=== PATIENT | female | born 1975 | race Caucasian/White ===

== ENCOUNTER → 2016-05-22 | Outpatient (CLI) | payer BC ==
--- NOTE | 2016-05-25 10:20 | MM ---
Reason for exam: screening (asymptomatic). Last mammogram was performed 1 year ago. Physical Findings: A clinical breast exam by your physician is recommended on an annual basis and results should be correlated with mammographic findings. MG Screening Mammo w CAD Bilateral CC and MLO view(s) were taken. Prior study comparison: May 29, 2015, right breast MG 3d work up w/cad RT. May 22, 2015, bilateral MG screening mammo w CAD. The breast tissue is heterogeneously dense. This may lower the sensitivity of mammography. Finding #1: There is a 5 mm mass in the outer quadrant of the right breast. Finding #2: There are typically benign calcifications in the left breast. ASSESSMENT: Incomplete: need additional imaging evaluation, BI-RAD 0 RECOMMENDATION: Special view mammogram of the right breast. If lesion persists on supplemental views, image directed ultrasound is recommended. [facility] will attempt to contact patient to return for supplemental views and ultrasound if indicated.
== END | disposition home or self-care (01) ==
LOC: RADMAMWWP 08:49
PROVIDERS: ATTEND Obstetrics & Gynecology
DX: Z12.31 Encounter for screening mammogram for malignant neoplasm of breast (principal); R92.8 Other abnormal and inconclusive findings on diagnostic imaging of breast

== ENCOUNTER → 2016-05-29 | Outpatient (CLI) | payer BC ==
--- NOTE | 2016-05-29 10:30 | MM ---
Reason for exam: additional evaluation requested from abnormal screening. Last mammogram was performed less than 1 month ago. Physical Findings: Nurse did not find any significant physical abnormalities on exam. MG Work Up Mamm w CAD RT ML and spot compression CC view(s) were taken of the right breast. Prior study comparison: May 22, 2016, bilateral MG screening mammo w CAD. May 29, 2015, right breast MG 3d work up w/cad RT. The breast tissue is heterogeneously dense. This may lower the sensitivity of mammography. Asymmetric breast tissue in the right breast persists with compression. These results were verbally communicated with the patient and result sheet given to the patient on 05/29/16. ASSESSMENT: Incomplete: need additional imaging evaluation, BI-RAD 0 RECOMMENDATION: Ultrasound of the right breast. (upper outer quadrant)
--- NOTE | 2016-05-29 10:31 | USB ---
Reason for exam: additional evaluation requested from abnormal screening. US Breast Workup Limited RT Right breast ultrasound demonstrates a 0.6 x 0.6 x 0.3cm oval, hypoechoic lesion at 9 o'clock. These results were verbally communicated with the patient and result sheet given to the patient on 05/29/16. ASSESSMENT: Benign, BI-RAD 2 RECOMMENDATION: Follow-up diagnostic mammogram of the right breast in 6 months.
== END | disposition home or self-care (01) ==
LOC: RADMAMWWP 08:55
PROVIDERS: ATTEND Obstetrics & Gynecology
DX: R92.8 Other abnormal and inconclusive findings on diagnostic imaging of breast (principal)
CPT/HCPCS: 76642; G0206

== ENCOUNTER → 2016-12-01 | Outpatient (CLI) | payer BC ==
--- NOTE | 2016-12-01 10:45 | MM ---
Reason for exam: follow-up at short interval from prior study. Last mammogram was performed 6 months ago. Physical Findings: Nurse did not find any significant physical abnormalities on exam. MG Diagnostic Mammo RT w CAD CC and MLO view(s) were taken of the right breast. Prior study comparison: May 29, 2016, right breast MG work up mamm w CAD RT. May 22, 2016, bilateral MG screening mammo w CAD. The breast tissue is heterogeneously dense. This may lower the sensitivity of mammography. No significant new findings when compared with previous films. These results were verbally communicated with the patient and result sheet given to the patient on 12/01/16. ASSESSMENT: Probably benign, BI-RAD 3 RECOMMENDATION: Follow-up diagnostic mammogram of both breasts in 6 months. Back on schedule.
== END | disposition home or self-care (01) ==
LOC: RADMAMWWP 10:01
PROVIDERS: ATTEND Obstetrics & Gynecology
DX: R92.8 Other abnormal and inconclusive findings on diagnostic imaging of breast (principal)

== ENCOUNTER → 2017-06-15 | Outpatient (CLI) | payer BC ==
--- NOTE | 2017-06-15 14:00 | MM ---
Reason for exam: additional evaluation requested from prior study. Last mammogram was performed 6 months ago. Physical Findings: Nurse did not find any significant physical abnormalities on exam. MG Diagnostic Mammo w CAD TONI Bilateral CC and MLO view(s) were taken. Prior study comparison: December 01, 2016, right breast MG diagnostic mammo RT w CAD. May 29, 2016, right breast MG work up mamm w CAD RT. The breast tissue is heterogeneously dense. This may lower the sensitivity of mammography. No significant new findings when compared with previous films. These results were verbally communicated with the patient and result sheet given to the patient on 06/15/17. ASSESSMENT: Negative, BI-RAD 1 RECOMMENDATION: Routine screening mammogram of both breasts in 1 year.
== END | disposition home or self-care (01) ==
LOC: RADMAMWWP 13:12
PROVIDERS: ATTEND Obstetrics & Gynecology
DX: R92.8 Other abnormal and inconclusive findings on diagnostic imaging of breast (principal)
CPT/HCPCS: 77066

== ENCOUNTER → 2018-11-03 | Outpatient (CLI) | payer BC ==
--- NOTE | 2018-11-08 09:40 | MM ---
Reason for exam: screening (asymptomatic). Last mammogram was performed 1 year and 5 months ago. History: Patient is postmenopausal. Physical Findings: A clinical breast exam by your physician is recommended on an annual basis and results should be correlated with mammographic findings. MG 3D Screening Mammo W/Cad Bilateral CC and MLO view(s) were taken. Prior study comparison: June 15, 2017, bilateral MG diagnostic mammo w CAD [facility]. December 01, 2016, right breast MG diagnostic mammo RT w CAD. The breast tissue is heterogeneously dense. This may lower the sensitivity of mammography. No significant changes when compared with prior studies. ASSESSMENT: Benign, BI-RAD 2 RECOMMENDATION: Routine screening mammogram of both breasts in 1 year.
== END | disposition home or self-care (01) ==
LOC: RADMAMWWP 09:43
PROVIDERS: ATTEND Family Medicine
DX: Z12.31 Encounter for screening mammogram for malignant neoplasm of breast (principal)
CPT/HCPCS: 77063; 77067

== ENCOUNTER → 2018-11-08 | Outpatient (CLI) | payer BC ==
--- NOTE | 2018-11-08 11:42 | EST ---
EXERCISE STRESS AGE: 43 SEX: F HT: 62" WT: 160 PROTOCOL: Khoi Stress Test STAGE: 3 DURATION OF EXERCISE: 9:00 HEART RATE REST: 90 BLOOD PRESSURE REST: 146/94 MAXIMUM HEART RATE ACHIEVED: 153 MAXIMUM BLOOD PRESSURE: 167/65 85% MPHR: 149 100% MPHR: 176 METS: 10.5 INDICATIONS: Chest pain. CLINICAL INFORMATION: STRESS DATA: Heart rate 90, pressure is 146/94 mmHg. Baseline EKG showed sinus mechanism. The patient exercised on the treadmill according to Khoi protocol for a total of 9 minutes and achieved 10.5 METS. Max heart rate was 153 which is about 87% of maximum predicted heart rate. Maximum blood pressure was 167/65 mmHg. Clinically, the patient did not have any symptoms of chest pain or discomfort and the EKG did not show any significant ST or T-wave abnormalities concerning for ischemia. CONCLUSION: 1. Excellent exercise tolerance. 2. Normal EKG in response to exercise. 3. Essentially normal exercise treadmill stress test for this patient. MMODL / IJN: [id number] /
--- NOTE | 2018-11-09 09:49 | ECHOF ---
Referral Reason:R00.2 Palpitations, R07.89 Other chest pain MEASUREMENTS -------- HEIGHT: 157.5 cm WEIGHT: 72.6 kg BP: RVIDd: 2.8 cm (< 3.3) IVSd: 1.5 cm (0.6 - 1.1) LVIDd: 4.0 cm (3.9 - 5.3) LVPWd: 1.4 cm (0.6 - 1.1) IVSs: 1.8 cm LVIDs: 2.2 cm LVPWs: 1.9 cm LAESV Index (A-L): 19.18 ml/m Ao Diam: 3.1 cm (2.0 - 3.7) AV Cusp: 2.1 cm (1.5 - 2.6) LA Diam: 3.5 cm (2.7 - 3.8) MV E Demario: 0.63 m/s MV DecT: 144 ms MV A Demario: 0.54 m/s MV E/A Ratio: 1.17 AR PHT: 468 ms FINDINGS -------- Sinus rhythm. This was a technically adequate study. The left ventricular size is normal. There is moderate concentric left ventricular hypertrophy. O verall left ventricular systolic function is normal with, an EF between 60 - 65 %. The diastolic fi lling pattern is normal for the age of the patient 12.69. The right ventricle is normal in size. Normal LA size by volume 22+/-6 ml/m2. The right atrial size is normal. Interatrial and interventricular septum intact. The aortic valve is trileaflet and appears structurally normal. There is mild aortic regurgitation. There is no evidence of aortic stenosis. The mitral valve is normal. No mitral regurgitation. Mild tricuspid regurgitation present. There is no evidence of pulmonary hypertension. The right v entricular systolic pressure, as measured by Doppler, is {RVSP}. There is no pulmonic regurgitation present. The aortic root size is normal. Normal inferior vena cava with normal inspiratory collapse consistent with estimated right atrial pre ssure of 5 mmHg. There is no pericardial effusion. CONCLUSIONS -------- 1. Sinus rhythm. 2. This was a technically adequate study. 3. The left ventricular size is normal. 4. There is moderate concentric left ventricular hypertrophy. 5. Overall left ventricular systolic function is normal with, an EF between 60 - 65 %. 6. The diastolic filling pattern is normal for the age of the patient 12.69 7. The right ventricle is normal in size. 8. Normal LA size by volume 22+/-6 ml/m2. 9. The right atrial size is normal. 10. Interatrial and interventricular septum intact. 11. The aortic valve is trileaflet and appears structurally normal. 12. There is mild aortic regurgitation. 13. There is no evidence of aortic stenosis. 14. The mitral valve is normal. 15. No mitral regurgitation. 16. Mild tricuspid regurgitation present. 17. There is no evidence of pulmonary hypertension. 18. The right ventricular systolic pressure, as measured by Doppler, is {RVSP}. 19. There is no pulmonic regurgitation present. 20. The aortic root size is normal. 21. Normal inferior vena cava with normal inspiratory collapse consistent with estimated right atrial pressure of 5 mmHg. 22. There is no pericardial effusion. PHYSICIAN ALLERGIST IMMUNOLOGIST: Ruthie Quintana RDCS
== END ==
LOC: RADNMMAIN 10:24
PROVIDERS: ATTEND Family Medicine
DX: I08.2 Rheumatic disorders of both aortic and tricuspid valves (principal); R00.2 Palpitations; R07.89 Other chest pain
CPT/HCPCS: 93017; 93306

== ENCOUNTER → 2020-03-28 | Outpatient (CLI) | payer BC ==
--- NOTE | 2020-03-28 11:07 | MM ---
Reason for exam: clinical finding. Last mammogram was performed 1 year and 5 months ago. Physical Findings: Nurse did not find any significant physical abnormalities on exam. MG Diagnostic Mammo w CAD TONI Bilateral CC and MLO view(s) were taken. Prior study comparison: November 03, 2018, bilateral MG 3d screening mammo w/cad. June 15, 2017, bilateral MG diagnostic mammo w CAD [facility]. The breast tissue is heterogeneously dense. This may lower the sensitivity of mammography. Focal asymmetry on distortion left upper outer quadrant, resolves on compression. This finding is changed when compared with previous exams. These results were verbally communicated with the patient and result sheet given to the patient on 03/28/20. ASSESSMENT: Probably benign, BI-RAD 3 RECOMMENDATION: Follow-up diagnostic mammogram of the left breast in 6 months.
== END | disposition home or self-care (01) ==
LOC: RADMAMWWP 10:07
PROVIDERS: ATTEND Obstetrics & Gynecology
DX: N64.4 Mastodynia (principal)
CPT/HCPCS: 77066

== ENCOUNTER → 2021-07-10 | Outpatient (CLI) | payer BC ==
--- NOTE | 2021-07-14 10:04 | MM ---
Reason for exam: screening (asymptomatic). Last mammogram was performed 1 year and 3 months ago. History: Reductions of both breasts, October 2020. Physical Findings: A clinical breast exam by your physician is recommended on an annual basis and results should be correlated with mammographic findings. MG Screening Mammo w CAD Bilateral CC, MLO, and XCCL view(s) were taken. Prior study comparison: March 28, 2020, bilateral MG diagnostic mammo w CAD [facility]. November 03, 2018, bilateral MG 3d screening mammo w/cad. The breast tissue is heterogeneously dense. This may lower the sensitivity of mammography. Finding: There is a new 7 mm equal density (isodense), obscured round mass located 2 cm from the nipple in the upper outer quadrant, anterior position of the right breast. New finding since March 28, 2020 and November 03, 2018. ASSESSMENT: Incomplete: need additional imaging evaluation, BI-RAD 0 RECOMMENDATION: Special view mammogram and ultrasound of the right breast. [facility] will attempt to contact patient to return for supplemental views and ultrasound.
== END | disposition home or self-care (01) ==
LOC: RADMAMWWP 12:37
PROVIDERS: ATTEND Family Medicine
DX: Z12.31 Encounter for screening mammogram for malignant neoplasm of breast (principal)
CPT/HCPCS: 77067

== ENCOUNTER → 2021-08-12 | Outpatient (CLI) | payer BC ==
--- NOTE | 2021-08-12 09:54 | MM ---
Reason for Exam: Additional evaluation requested from abnormal screening. Last screening mammogram was performed 1 month(s) ago. Patient History: Menarche at age 14. First Full-Term at age 24. 10/2020, Bilateral Reduction. Risk Values: Kandi 5 year model risk: 0.9%. NCI Lifetime model risk: 9.5%. Prior Study Comparison: 11/03/2018 Bilateral Screening Mammogram, [facility]. 03/28/2020 Bilateral Diagnostic Mammogram, [facility]. 07/10/2021 Bilateral Screening Mammogram, [facility]. Tissue Density: Right: The breast tissue is heterogeneously dense. This may lower the sensitivity of mammography. Findings: Analyzed By CAD. Mammogram There is a 1.1 cm low density circumscribed nodule along the upper outer quadrant periareolar region of the right breast for which ultrasound is recommended. Technique: Method: Targeted. Findings: The upper section of the breast of the right breast was scanned. Finding 1: Mass. Laterality: Right. Size 8 x 5 x 8 mm. 11 O'clock Depth: Anterior. 2 cm cm from nipple. Shape: Oval. Margin: Circumscribed (Well-Defined or Sharply-Defined). Targeted scanning 11:00 position 2 cm from the nipple shows a mammographic correlate characterized by intermediate by 8 x 5 mm circumscribed oval isoechoic nodule. Some posterior through transmission is present. No internal vascularity. Recommend tissue sampling to exclude a papilloma. No other solid or cystic lesion. Overall Assessment: Suspicious, BI-RAD 4 Assessment: MG work up mamm w CAD RT - Right: Incomplete: need additional imaging evaluation, BI-RAD 0. US breast workup limited RT - Right: Suspicious, BI-RAD 4. Management: Ultrasound Core Biopsy of the right breast. Ultrasound-guided core needle biopsy 8mm 11:00 periareolar nodule to exclude a papilloma. Likely mammographic correlate. Electronically signed and approved by: Mariajose Barragan M.D. Radiologist
== END | disposition home or self-care (01) ==
LOC: RADMAMWWP 08:50
PROVIDERS: ATTEND Family Medicine
DX: R92.8 Other abnormal and inconclusive findings on diagnostic imaging of breast (principal)
CPT/HCPCS: 77065

== ENCOUNTER → 2021-08-21 | Day surgery (SDC) | payer BC ==
--- NOTE | 2021-08-28 11:27 | MM ---
Reason for Exam: Post Procedure Mammogram. Last screening mammogram was performed 1 month(s) ago. Patient History: Menarche at age 14. First Full-Term at age 24. Patient has history of breast feeding. 10/2020, Bilateral Reduction. Last menstrual period: 08/17/2018 Risk Values: Kandi 5 year model risk: 0.9%. NCI Lifetime model risk: 9.5%. Prior Study Comparison: 03/28/2020 Bilateral Diagnostic Mammogram, [facility]. 07/10/2021 Bilateral Screening Mammogram, [facility]. 08/12/2021 Right MG work up mamm w CAD RT, [facility]. Tissue Density: Right: The breast tissue is heterogeneously dense. This may lower the sensitivity of mammography. Pathology Description: Location: 11 o'clock, anterior. Marker Left Behind. Cores: 5 The procedure of ultrasound guided core biopsy was explained to the patient. Benefits, alternatives, and risks were discussed. An informed consent was then obtained. The patient was placed in supine positioning for imaging and for the procedure. The overlying skin was prepped and draped in usual sterile fashion. Lidocaine was used as anesthetic into the skin followed by lidocaine/epinephrine into the subcutaneous tissue up to area of concern in the upper outer periareolar right breast. Under ultrasound guidance, a 13-gauge vacuum-assisted mammotome biopsy gun was used to obtain 5 core samples. Following this, a Hydromark clip was left in lesion. The patient tolerated the procedure well without any immediate complication. The patient was kept in the radiology department for short stay after the procedure and then discharged home in stable condition. Postbiopsy mammogram shows clip in the periareolar upper outer quadrant at the site of previous nodularity. Impression: Successful, uncomplicated ultrasound guided core biopsy of upper-outer quadrant right periareolar nodularity. Benign etiology favored. Full pathology results to follow. Pathology Results: Result: Benign, Fat necrosis. RIGHT BREAST, 11:00 POSITION, CORE BIOPSY: Benign breast tissue with focal chronic inflammation, fibrosis and fat necrosis (see note). Overall Assessment: Benign Assessment: MG diagnostic mammo RT wo CAD - Right: Benign, BI-RAD 2. Management: Diagnostic Mammogram of the right breast in 6 months. Electronically signed and approved by: Mariajose Barragan M.D. Radiologist
== END ==
LOC: RADUSWWP 12:35
PROVIDERS: ATTEND Surgery
DX: N60.31 Fibrosclerosis of right breast (principal); N64.1 Fat necrosis of breast
CPT/HCPCS: 88305; 77065; 19083; A4648

== ENCOUNTER → 2023-01-14 | Outpatient (CLI) | payer BC ==
--- NOTE | 2023-01-18 06:33 | MM ---
Reason for Exam: Screening (asymptomatic). Last mammogram was performed 1 year(s) and 6 month(s) ago. Patient History: Menarche at age 14. First Full-Term at age 24. Patient has history of breast feeding. 08/21/2021, Benign US biopsy breast VAD RT on the right side. 10/2020, Bilateral Reduction. Risk Values: Kandi 5 year model risk: 1.2%. NCI Lifetime model risk: 10.8%. Prior Study Comparison: 07/10/2021 Bilateral Screening Mammogram, [facility]. 08/12/2021 Right MG work up mamm w CAD RT, [facility]. 08/21/2021 Right MG diagnostic mammo RT wo CAD, [facility]. Tissue Density: The breast tissue is heterogeneously dense. This may lower the sensitivity of mammography. Findings: Analyzed By CAD. There are new bilateral heterogeneous grouped calcifications, 2 groups on either side for which further magnification views are recommended. There is no suspicious group of microcalcifications or new suspicious mass in either breast. Overall Assessment: Incomplete: need additional imaging evaluation, BI-RAD 0 Management: Special View Mammogram of both breasts. To include mag CC, magnified lateral, and 3-D lateral views of the 2 groups of microcalcifications on either side.. Electronically signed and approved by: Mariajose Barragan M.D. Radiologist
== END | disposition home or self-care (01) ==
LOC: RADMAMWWP 11:05
PROVIDERS: ATTEND Family Medicine
DX: Z12.31 Encounter for screening mammogram for malignant neoplasm of breast (principal)
CPT/HCPCS: 77067

== ENCOUNTER → 2023-02-02 | Outpatient (CLI) | payer BC ==
--- NOTE | 2023-02-02 11:09 | MM ---
Reason for Exam: Additional evaluation requested from abnormal screening. Last screening mammogram was performed less than 1 month ago. Patient History: Menarche at age 14. First Full-Term at age 24. Patient has history of breast feeding. 08/21/2021, Benign US biopsy breast VAD RT on the right side. 10/2020, Bilateral Reduction. Risk Values: Kandi 5 year model risk: 1.2%. NCI Lifetime model risk: 10.8%. Prior Study Comparison: 08/21/2021 Right MG diagnostic mammo RT wo CAD, [facility]. 01/14/2023 Bilateral MG screening mammo w CAD, [facility]. Tissue Density: The breast tissue is heterogeneously dense. This may lower the sensitivity of mammography. Findings: Analyzed By CAD. Pattern appears symmetrical. There are multiple amorphous calcifications present bilaterally. Calcifications within the left breast appear benign. The anterior calcifications adjacent to the core marker appear benign. There is additional filling heterogenous calcifications inferior anterior right breast 8.5 cm nipple. This is somewhat more peripheral and posterior compared to the previous biopsy site. These are considered suspicious and stereotactic core biopsy of these right breast calcifications is recommended. Overall Assessment: Suspicious, BI-RAD 4 Management: Stereotactic Core Biopsy of the right breast. A negative mammogram report should not preclude additional follow up of suspicious palpable abnormalities. Patient should continue monthly self breast exam. A clinical breast exam by your physician is recommended on an annual basis and results should be correlated with mammographic findings. Electronically signed and approved by: Sushant Beckwith D.O. Radiologis
== END | disposition home or self-care (01) ==
LOC: RADMAMWWP 10:11
PROVIDERS: ATTEND Family Medicine
DX: R92.333 Mammographic heterogeneous density, bilateral breasts (principal)
CPT/HCPCS: 77062; 77066

== ENCOUNTER → 2023-02-15 | Day surgery (SDC) | payer BC ==
--- NOTE | 2023-02-22 09:37 | MM ---
Risk Values: Kandi 5 year model risk: 1.2%. NCI Lifetime model risk: 10.8%. Prior Study Comparison: 08/21/2021 Right MG diagnostic mammo RT wo CAD, [facility]. 01/14/2023 Bilateral MG screening mammo w CAD, [facility]. 02/02/2023 Bilateral MG 3D work up w/cad TONI, [facility]. Pathology Description: Marker Left Behind. Specimen Radiograph. Approach: Lateral to Medial Needle Type: Eviva Cores: 5 Skin Nicks: 2 The procedure of stereotactic guided core biopsy was explained to the patient. Benefits, alternatives, and risks were discussed. An informed consent was then obtained. The 3:00 anterior right breast microcalcifications are identified and targeted for biopsy. The [facility] pathway for biopsy was chosen. Shortness pathway was a lateral approach. I performed the localization, followed by the remainder of the procedure. A vacuum assisted biopsy gun was used to obtain 5 core samples. The patient tolerated the procedure well without any immediate complication. The patient was kept in the radiology department for short stay after the procedure and then discharged home in stable condition. Targeted calcifications are identified in specimen mammogram. Post biopsy mammogram shows the clip to appear in satisfactory position relative to the targeted area of concern on the preprocedure images. IMPRESSION: SUCCESSFUL, UNCOMPLICATED STEREOTACTIC/TOMOGRAPHIC GUIDED CORE BIOPSY 9:00 ANTERIOR RIGHT BREAST GROUPED CALCIFICATIONS. Pathology Results: Result: Benign, Fat necrosis. RIGHT BREAST, STEREOTACTIC CORE BIOPSY: Nodular fat necrosis with microcalcification. Fibrocystic change with focal apocrine metaplasia, fibrosis, and fibroadenomatoid stromal hyperplasia. Negative for in situ or invasive carcinoma. Overall Assessment: Benign Management: Diagnostic Mammogram of the right breast in 6 months. Electronically signed and approved by: Mariajose Barragan M.D. Radiologist
== END ==
LOC: RADMAMWWP 09:50
PROVIDERS: ATTEND Surgery
DX: N60.81 Other benign mammary dysplasias of right breast (principal); N64.1 Fat necrosis of breast
CPT/HCPCS: 88305; 19081; A4648

== ENCOUNTER 2023-05-12 08:56 | Day surgery (SDC) | payer BC ==
[2023-05-10 13:42] VITALS: BMI 25.9
[~2023-05-12 08:56] MED LIST: LIDOCAINE 1% (10MG/ML) FOR IV START INTRADERMA PRN; ONDANSETRON 4 MG/2 ML VIAL IVP PRN
[2023-05-12] MEDS: LACTATED RINGERS 1,000 ML IV SCH (09:42)
[2023-05-12 10:27] VITALS: TEMP 97.3
[2023-05-12] MEDS ORDERED: fentaNYL (PF) 50 MCG/ML 2 ML AMP ONE (10:37)
[2023-05-12] MEDS ORDERED: PROPOFOL 10 MG/ML 20 ML VIAL IV ONE (10:37)
--- NOTE | 2023-05-12 10:53 | P.PCN ---
Date of Procedure: 05/12/23 Procedure(s) Performed: BRIEF HISTORY: Patient is a 46-year-old pleasant white female scheduled for an elective colonoscopy as a part of screening for colon cancer. PROCEDURE PERFORMED: Colonoscopy. PREOPERATIVE DIAGNOSIS: Screening for colon cancer. IV sedation per Anesthesia. PROCEDURE: After informed consent was obtained, the patient, was brought into the endoscopy unit. IV sedation was administered by Anesthesia under continuous monitoring. Digital rectal examination was normal. Initially the Olympus CF-160 flexible video colonoscope was then inserted in the rectum, gradually advanced into the cecum without any difficulty. Careful examination was performed as the scope was gradually being withdrawn. Ileocecal valve and the appendiceal orifice were visualized and appeared normal. Prep was excellent. Mucosa of the cecum, ascending colon, transverse colon, descending colon, sigmoid colon, and rectum appeared normal. Scattered sigmoid diverticulosis. Retroflexion was performed in the rectum and no lesions were seen. The patient tolerated the procedure well. IMPRESSION: Normal-appearing colon from rectum to cecum with no evidence of colorectal neoplasia. Scattered sigmoid diverticulosis. RECOMMENDATIONS: Findings of this examination were discussed with the patient as well as a family.. She was advised to have a repeat screening colonoscopy in 10 years.
[2023-05-12 11:36] VITALS: BP 119/75; PULSE 76; RESP 18
== END 2023-05-12 11:50 | disposition home or self-care (01) ==
LOC: ORWHC2ENDO 08:56
PROVIDERS: ATTEND Internal Medicine Gastroenterology
DX: Z12.11 Encounter for screening for malignant neoplasm of colon (principal); K57.30 Diverticulosis of large intestine without perforation or abscess without bleeding; I10 Essential (primary) hypertension; F32.A Depression, unspecified; K21.9 Gastro-esophageal reflux disease without esophagitis; Z79.899 Other long term (current) drug therapy; Z98.891 History of uterine scar from previous surgery; Z98.890 Other specified postprocedural states
CPT/HCPCS: 81025; 84703; 45378; J3010; J2704

== ENCOUNTER → 2023-08-31 | Outpatient (CLI) | payer BC ==
--- NOTE | 2023-08-31 09:58 | MM ---
Reason for Exam: Follow-up at short interval from prior study. Last screening mammogram was performed 7 month(s) ago. Patient History: Menarche at age 14. First Full-Term at age 24. Patient has history of breast feeding. 02/15/2023, Benign MG stereo VAD BX RT on the right side. 08/21/2021, Benign US biopsy breast VAD RT on the right side. 10/2020, Bilateral Reduction. Risk Values: Kandi 5 year model risk: 1.6%. NCI Lifetime model risk: 13.6%. Prior Study Comparison: 08/21/2021 Right MG diagnostic mammo RT wo CAD, [facility]. 01/14/2023 Bilateral MG screening mammo w CAD, [facility]. 02/02/2023 Bilateral MG 3D work up w/cad TONI, [facility]. Tissue Density: Right: The breasts are heterogeneously dense, which may obscure small masses. Findings: Analyzed By CAD. Microclip anterior lateral right breast from recent biopsy. Residual benign coarse and oil cyst calcifications remain. Questionable faint regional calcifications upper aspect of the right breast do not clearly persist on magnification views. Precautionary 6 month follow-up recommended. Overall Assessment: Probably benign, BI-RAD 3 Management: Diagnostic Mammogram of both breasts in 6 months. Six-month follow-up right breast and annual exam of the left breast. Results were given to the patient verbally at the time of exam. Patient should continue monthly self-breast exams. A clinical breast exam by your physician is recommended on an annual basis. This exam should not preclude additional follow-up of suspicious palpable abnormalities. Note on Kandi scores and lifetime risk: 1. A Kandi score greater than 3% is considered moderate risk. If this is the case, consider specialist referral to assess eligibility for a risk reducing agent. 2. If overall lifetime risk for the development of breast cancer is 20% or higher, the patient may qualify for future screening with alternating mammogram and breast MRI. Electronically signed and approved by: Mariajose Barragan M.D. Radiologist
== END | disposition home or self-care (01) ==
LOC: RADMAMWWP 07:51
PROVIDERS: ATTEND Family Medicine
DX: R92.331 Mammographic heterogeneous density, right breast (principal); R92.8 Other abnormal and inconclusive findings on diagnostic imaging of breast
CPT/HCPCS: 77061; 77065

== ENCOUNTER → 2024-03-09 | Outpatient (CLI) | payer BC ==
--- NOTE | 2024-03-10 19:40 | MR ---
EXAMINATION TYPE: MR shoulder RT wo con DATE OF EXAM: 03/09/2024 4:37 PM COMPARISON: None. CLINICAL INDICATION: Female, 48 years old with history of M25.511 PAIN IN RIGHT SHOULDER, Right shoul tonya pain, radiates into biceps for 6 months. IV Contrast: cc (None if empty) TECHNIQUE: Multiplanar, multisequence imaging of the right shoulder is performed without contrast. FINDINGS: Rotator Cuff: Intact supraspinatus and infraspinatus tendons. Intact subscapularis tendon. Rotator cu ff muscle bulk is preserved. Acromioclavicular Joint: Mild to moderate narrowing. Mild capsular hypertrophy. Distal acromion morph ology unremarkable. Glenohumeral Joint: Small sized joint effusion. No significant spurring. Labrum: The labrum appears grossly intact given limitation of non-arthrogram study. Biceps Tendon: The long head of biceps is in normal location within bicipital groove. Bone marrow signal: No focal abnormal marrow signal is appreciated. Other: No additional significant abnormality is appreciated. IMPRESSION: Mild degenerative changes. No rotator cuff or labral tear. No biceps tendon tear or dislocation. [facility], , 03/10/2024 7:38 PM
== END | disposition home or self-care (01) ==
LOC: RADMRIMAIN 15:36
PROVIDERS: ATTEND Family Medicine
DX: M19.011 Primary osteoarthritis, right shoulder (principal); M25.411 Effusion, right shoulder

== ENCOUNTER → 2024-03-15 | Outpatient (CLI) | payer BC ==
--- NOTE | 2024-03-15 11:25 | MM ---
Reason for Exam: Follow-up at short interval from prior study. Last mammogram was performed 1 year(s) and 2 month(s) ago. Patient History: Menarche at age 14. First Full-Term at age 24. Patient has history of breast feeding. 02/15/2023, Benign MG stereo VAD BX RT on the right side. 08/21/2021, Benign US biopsy breast VAD RT on the right side. 10/2020, Bilateral Reduction. Risk Values: Kandi 5 year model risk: 1.5%. NCI Lifetime model risk: 13.3%. Tissue Density: The breasts are heterogeneously dense, which may obscure small masses. Findings: Analyzed By CAD. Right breast biopsy clip with benign calcifications. Left benign calcifications. No new suspicious masses, calcifications or distortions. Overall Assessment: Benign, BI-RAD 2 Management: Screening Mammogram of both breasts in 1 year. Results were given to the patient verbally at the time of exam. Patient should continue monthly self-breast exams. A clinical breast exam by your physician is recommended on an annual basis. This exam should not preclude additional follow-up of suspicious palpable abnormalities. Note on Kandi scores and lifetime risk: 1. A Kandi score greater than 3% is considered moderate risk. If this is the case, consider specialist referral to assess eligibility for a risk reducing agent. 2. If overall lifetime risk for the development of breast cancer is 20% or higher, the patient may qualify for future screening with alternating mammogram and breast MRI. [facility], , 03/15/2024 11:22 AM. Electronically signed and approved by: David Daley DO
== END | disposition home or self-care (01) ==
LOC: RADMAMWWP 10:43
PROVIDERS: ATTEND Family Medicine
DX: R92.8 Other abnormal and inconclusive findings on diagnostic imaging of breast (principal); R92.333 Mammographic heterogeneous density, bilateral breasts
CPT/HCPCS: 77062; 77066

== ENCOUNTER → 2024-06-09 | Outpatient (CLI) | payer BC ==
--- NOTE | 2024-06-09 15:15 | XR ---
EXAMINATION TYPE: XR ribs LT, XR chest 2V DATE OF EXAM: 06/09/2024 3:06 PM COMPARISON: CLINICAL INDICATION: Female, 48 years old with history of R0782 INTERCOSTAL PAIN; YCH, pain TECHNIQUE: XR ribs LT, XR chest 2V; Frontal and oblique views of the ribs with frontal chest radiogra ph. FINDINGS: The ribs have a normal appearance. No evidence of fracture. Overall, the lungs are clear. The cardiac silhouette is normal in size. The remaining osseous stru ctures are intact. IMPRESSION: No acute osseous pathology. [facility], , 06/09/2024 3:13 PM
== END | disposition home or self-care (01) ==
LOC: RADXRYALE 14:54
PROVIDERS: ATTEND Nurse Practitioner
DX: R07.82 Intercostal pain (principal)
CPT/HCPCS: 71046

== ENCOUNTER → 2024-06-13 | Outpatient (CLI) | payer BC ==
--- NOTE | 2024-06-13 08:14 | US ---
EXAMINATION TYPE: US abdomen complete DATE OF EXAM: 06/13/2024 COMPARISON: NONE CLINICAL INDICATION: Female, 48 years old with history of R10.12 LEFT UPPER QUADRANT PAIN; Pt states LUQ pain TECHNIQUE: Grayscale and color Doppler imaging of the abdomen was performed. FINDINGS: EXAM MEASUREMENTS: Liver Length: 12.5 cm Gallbladder Wall: 0.2 cm CBD: 0.2 cm, color Doppler imaging was utilized to isolate the common bile duct for measurement. Spleen: 8.9 cm Right Kidney: 9.5 x 4.8 x 4.8 cm Left Kidney: 10.0 x 5.3 x 5.0 cm CAPACITY PLANNING ANALYST NOTES: Pancreas: wnl, tail obscured by overlying bowel gas Liver: Visualized mostly intercostally, left medial lobe lobulated, cystic lesion= 2.6 x 1.6 x 1.7 c m Gallbladder: wnl Evidence for sonographic Lao's sign: No CBD: wnl Spleen: wnl Right Kidney: wnl, No hydronephrosis, calculi or masses seen, lower pole gassed out Left Kidney: No evidence of hydro, possible calculi lower pole= 6mm in size Upper IVC: wnl Abd Aorta: wnl The liver is homogenous. Technologist trammell incidental 1.7 cm simple appearing benign thin-walled cys t in the left hepatic lobe. The intrahepatic portion of the IVC and visualized abdominal aorta are wi thin normal limits. There is no evidence of shadowing mobile cholelithiasis. Common bile duct is un remarkable. The visualized portions of the pancreas are homogenous. The spleen is unremarkable. Ki dneys are symmetric and free of hydronephrosis. Suspect possible 6 mm nonobstructing calculus lower p ole of the left kidney. IMPRESSION: Suboptimal study. Suspect nonobstructing left renal calculi. No acute finding identified to account for patient's symptoms. [facility], , 06/13/2024 8:12 AM
== END | disposition home or self-care (01) ==
LOC: RADUSWWP 07:39
PROVIDERS: ATTEND Family Medicine
DX: R10.12 Left upper quadrant pain (principal)
CPT/HCPCS: 76700

== ENCOUNTER 2024-10-06 10:17 | Day surgery (SDC) | payer BC ==
[2024-10-03 10:15] VITALS: BMI 25.6
[2024-10-06] MEDS: IV FLUID CONTINUATION 1,000 ML IV ONE (10:30)
[2024-10-06 10:53] VITALS: TEMP 96.9
[2024-10-06] MEDS: LACTATED RINGERS 1,000 ML IV SCH (11:15)
[2024-10-06] MEDS ORDERED: PROPOFOL 10 MG/ML 20 ML VIAL IV ONE (12:03)
[2024-10-06] MEDS ORDERED: LIDOCAINE 1% INJ 10MG/ML (20 ML MDV) ONE (12:03)
--- NOTE | 2024-10-06 12:10 | P.PCN ---
Date of Procedure: 10/06/24 Procedure(s) Performed: BRIEF HISTORY: Patient is a 49-year-old, pleasant, white female scheduled for an upper endoscopy as a part of evaluation of reflux symptoms of several months duration. Recently had a severe episode of chest pain and was admitted to hospital for 2 days send cardiac workup was negative. She was started on Protonix 40 mg daily and since then her symptoms have significantly improved.. PROCEDURE PERFORMED: Esophagogastroduodenoscopy with biopsy. PREOPERATIVE DIAGNOSIS: GERD/epigastric pain. IV sedation per anesthesia. PROCEDURE: After informed consent was obtained, the patient was brought into the endoscopy unit. IV conscious sedation was administered by Anesthesia under continuous monitoring. Initially the Olympus GIF-140 video endoscope was inserted into the mouth. Esophagus intubated without any difficulty. It was gradually advanced into the stomach and duodenum and carefully examined. The bulb and the second part of the duodenum appeared normal. The scope at this time was withdrawn to the stomach, adequately insufflated with air, and upon careful examination, mucosa of the antrum, had minimal gastritis and biopsies were done from this area. There was small gastric polyps which were biopsied in the body of the stomach. Rest of the body, cardia and the fundus appeared normal. The scope was then withdrawn into the esophagus. Small hiatal hernia noted. The GE junction was located at 39 cm from the incisors. The esophagus appeared normal. There were no erosions or ulcerations seen and the patient tolerated the procedure well. IMPRESSION: 1. Mild antral gastritis. 2. Small gastric polyps 3. Small hiatal hernia. RECOMMENDATIONS: The findings of this examination were discussed with the patient as well as family. She was advised to follow-up with the biopsy results. Continue with Protonix 40 mg daily and follow antireflux measures..
[2024-10-06 12:29] VITALS: BP 112/75; PULSE 85; RESP 14
== END 2024-10-06 12:50 | disposition home or self-care (01) ==
LOC: ORWHC2ENDO 10:17
PROVIDERS: ATTEND Internal Medicine Gastroenterology
DX: R10.13 Epigastric pain
CPT/HCPCS: 43239; 81025; 88305